=== PATIENT | female | born 1980 | race Caucasian/White ===

== ENCOUNTER 2016-09-27 20:35 | Emergency (ER) | payer SELFPAY ==
[2016-09-27] MEDS ORDERED: 0.9 % SODIUM CHLORIDE 1,000 ML BAG IV ONE (20:47)
--- NOTE | 2016-09-27 20:53 | Emergency Department Record ---
History of Present Illness - General Chief Complaint: Abdominal Pain Stated Complaint: ABD PAIN AND BACK PAIN Time Seen by Provider: 09/27/16 20:47 Source: Patient, Family Mode of Arrival: Ambulatory Limitations: No limitations - History of Present Illness Initial Comments: 35 yo female presents with about 6 months of abdominal pain. The pain is present nearly all the time. The pain is diffuse but seems to be in different locations at different times. Currently it is more prominent in the right upper quadrant. She report her normal bowel movement is a diarrhea. No blood. No fevers. Mild associated nausea. No vomiting in the last 6 months. The pain goes to her back at times. No changes in her weight. She has had her gall bladder removed. No urinary symptoms. She does not have a PCP. She was worked up "many" years ago with scopes and CT's when she had similar problems. No diagnosis was made at that time. MD Complaint: Abdominal pain Onset/Timin -: Month(s) Location: Diffuse, Other Radiation: Back Migration to: Other Severity: Moderate Quality: Aching Consistency: Constant Improves With: Rest Worsens With: Movement Associated Symptoms: Diarrhea - Related Data Previous Rx's Medication Instructions Recorded Hyoscyamine Sulfate [Levsin-Sl] 0.125 mg SL BID PRN #15 tab.subl 09/27/16 Allergies Allergy/AdvReac Type Severity Reaction Status Date / Time Penicillins Allergy PT UNSURE Verified 09/27/16 20:51 OF REACTION Tetracyclines Allergy PT UNSURE Verified 09/27/16 20:51 OF REACTION Travel Screening - Travel/Exposure Within Last 30 Days Have you traveled within the last 30 days?: No - Travel Symptoms Symptom Screening: None Review of Systems Constitutional: Denies: Chills, Fever, Malaise, Weakness Eyes: Denies: Eye discharge, Eye pain, Photophobia, Vision change ENT: Denies: Congestion, Epistaxis, Throat pain Respiratory: Denies: Cough, Dyspnea, Hemoptysis, Stridor, Wheezes Cardiovascular: Denies: Chest pain, Palpitations, Syncope Endocrine: Denies: Fatigue, Polydipsia, Polyuria Gastrointestinal: Reports: As per HPI, Abdominal pain, Diarrhea, Nausea Genitourinary: Denies: Dysuria, Frequency, Hematuria, Urgency Musculoskeletal: Reports: Back pain. Denies: Arthralgia, Neck pain Skin: Denies: Bruising, Change in color, Rash Neurological: Denies: Confusion, Headache Psychiatric: Denies: Anxiety Hematological/Lymphatic: Denies: Blood Clots, Easy bleeding, Easy bruising, Swollen glands Physical Exam - General General Appearance: Alert, Oriented x3, Cooperative, No acute distress, Other ( Well appearing) Limitations: No limitations - Head Head exam: Normal inspection - Eye Eye exam: Normal appearance, PERRL. negative: Conjunctival injection, Periorbital swelling, Scleral icterus - ENT ENT exam: Normal exam, Mucous membranes moist Ear exam: Normal external inspection Nasal Exam: Normal inspection Mouth exam: Normal external inspection Teeth exam: Normal inspection Throat exam: Normal inspection - Neck Neck exam: Normal inspection, Full ROM. negative: Lymphadenopathy, Tenderness - Respiratory Respiratory exam: Normal lung sounds bilaterally. negative: Respiratory distress, Rhonchi, Stridor, Wheezes - Cardiovascular Cardiovascular Exam: Regular rate, Normal rhythm, Normal heart sounds - GI/Abdominal GI/Abdominal exam: Soft. negative: Distended, Guarding, Rebound, Rigid, Tenderness - Rectal Rectal exam: Deferred - exam: Deferred - Extremities Extremities exam: Normal inspection, Full ROM, Normal capillary refill. negative: Pedal edema, Tenderness - Back Back exam: Reports: Normal inspection, Full ROM. Denies: CVA tenderness (R), CVA tenderness (L), Muscle spasm, Paraspinal tenderness, Rash noted, Tenderness , Vertebral tenderness - Neurological Neurological exam: Alert, Normal gait, Oriented X3 - Psychiatric Psychiatric exam: Normal affect, Normal mood. negative: Anxious - Skin Skin exam: Dry, Intact, Normal color, Warm Course Vital Signs 09/27/16 20:41 Temperature 98.2 F Pulse Rate [ 107 H Pulse Ox Probe] Respiratory 20 Rate Blood Pressure 163/108 [Left Arm] Pulse Ox 100 - Reevaluation(s) Reevaluation #1: The CBC was reviewed and normal. 09/27/16 21:09 Reevaluation #2: The remaining labs were normal Given the normal labs, benign examination I will refer her for a PCP as she will need a new PCP for routine care as well as further evaluation of her chronic abdominal issue. She may require a GI referral as well. 09/27/16 21:15 Reevaluation #3: CXR mild hyperinflation otherwise negative 09/27/16 22:04 Medical Decision Making - Lab Data Result diagrams: 09/27/16 20:55 09/27/16 20:55 Disposition Clinical Impression: Abdominal pain Qualifiers: Abdominal location: generalized Qualified Code(s): R10.84 - Generalized abdominal pain Condition: (1) Good Instructions: Abdominal Pain (ED) Additional Instructions: Call the [facility] to establish a new family doctor. Return to the ER if you have fever, vomiting, uncontrolled pain Prescriptions: Hyoscyamine Sulfate [Levsin-Sl] 0.125 mg SL BID PRN #15 tab.subl PRN Reason: Abdominal Pain Referrals: JOSSY HALL M.D. [MEDICAL DOCTOR] - Forms: Patient Portal Access Time of Disposition: 22:04
[2016-09-27 21:02] LABS: EOS % 5.3 % (0-6); GRAN % 47.1 % (47-80); HEMATOCRIT 39.1 % (35.0-47.0); HEMOGLOBIN 13.1 gm/dl (11.6-16.0); LYMPH % 40.5 % (16-45); MEAN CORPUSCULAR HEMOGLOBIN 31.5 pg (27-33); MEAN CORPUSCULAR HGB CONC 33.5 g/dl (32-36); MEAN PLATELET VOLUME 10.8 fl (7.4-10.4); MONO % 6.1 % (0-9); PLATELET COUNT 249 K/uL (130-400); RED BLOOD COUNT 4.16 M/uL (3.80-5.40); RED CELL DISTRIBUTION WIDTH 12.5 % (11.5-14.5); WHITE BLOOD COUNT W/O DIFF 8.2 K/uL (4.2-12.2)
[2016-09-27 21:04] LABS: URINE APPEARANCE CLEAR; URINE BILIRUBIN NEGATIVE (NEGATIVE); URINE BLOOD NEGATIVE (NEGATIVE); URINE COLOR YELLOW; URINE GLUCOSE (UA) NEGATIVE (NEGATIVE); URINE KETONE NEGATIVE (NEGATIVE); URINE LEUKOCYTE ESTERASE NEGATIVE (NEGATIVE); URINE NITRITE NEGATIVE (NEGATIVE); URINE PROTEIN NEGATIVE (NEGATIVE); URINE UROBILINOGEN 0.2 E.U./dL (0.20 - 1.00)
[2016-09-27 21:07] LABS: HCG,QUALITATIVE URINE NEGATIVE (NEGATIVE)
[2016-09-27 21:13] LABS: ALB/GLOB RATIO 1.5 (1.1-1.8); ALBUMIN 4.5 gm/dL (3.5-5.0); ALKALINE PHOSPHATASE 84 U/L (38-126); ALT/SGPT 32 U/L (9-52); ANION GAP 8.5 (7-16); AST/SGOT 27 U/L (14-36); BILIRUBIN,TOTAL 0.48 mg/dL (0.2-1.3); BLOOD UREA NITROGEN 13 mg/dL (7-17); CARBON DIOXIDE 26.5 mmol/L (22-30); CREATININE 0.8 mg/dL (0.52-1.04); EST GLOMERULAR FILTRATION RATE > 60 ml/min; GLUCOSE,RANDOM 91 mg/dL (70-110); LIPASE 40 U/L (23-300); TOTAL PROTEIN 7.6 gm/dL (6.3-8.2)
[2016-09-27] MEDS ORDERED: KETOROLAC 30 MG/ML VIAL IVP ONE (21:15)
== END 2016-09-27 22:13 | disposition home or self-care (01) ==
LOC: ER 20:35
DX: R10.84 Generalized abdominal pain (principal); R19.7 Diarrhea, unspecified; M54.5 Low back pain; R11.0 Nausea; R07.81 Pleurodynia
CPT/HCPCS: 99284 ×2; 96374; 83690; 85025; 80053; 81003; 81025; 71020; J1885; J7030